=== PATIENT | male | born 1940 | race Caucasian/White ===

== ENCOUNTER 2019-09-13 15:01 | Inpatient (IN) | payer MEDICARE, BC ==
[~2019-09-13] VITALS: Ht 180.3 cm; Wt 99.9 kg
[~2019-09-13 15:01] MED LIST: ASPIRIN 81M81 MG/TA2; CLARITIN 1010 MG/TAB PO; EPA FISH OIL1 SGL PO; PROVENTIL0.09 MG/A1 IH; TYLENOL 325MG325 MG PO
[2020-02-22] VITALS (13 sets, daily range): BP systolic 105–174; BP diastolic 58–92; PULSE 59–83; TEMP 97.4–98.4
[2020-02-22] MEDS ORDERED: TYLENOL 500MG500 MG PO (01:34)
[2020-02-22] MEDS ORDERED: PROAIR HFA0.09 MG/AC IH (01:35)
[2020-02-22] MEDS ORDERED: 00186-0370-20 IH (01:35)
[2020-02-22] MEDS ORDERED: MOTRIN 200200 MG/TAB PO (01:36)
[2020-02-22] MEDS ORDERED: AMOXICILLIN 8751 TAB PO (01:37)
[2020-02-22] MEDS ORDERED: CENTRUM SILVER1 CTB PO (01:37)
[2020-02-22] MEDS ORDERED: ALEVE 220MG220 MG PO (01:38)
[2020-02-22] MEDS ORDERED: PRILOSEC 20MG20 MG PO (01:38)
[2020-02-22] MEDS ORDERED: SUDAFED 12 HOU120 MG PO (01:41)
--- NOTE | 2020-02-22 05:30 | NUR ---
ARRIVED PER W/C TO ROOM 329 FOR SURGERY THIS AM.
--- NOTE | 2020-02-22 06:29 | NUR ---
TO SURGERY PER BED.
--- NOTE | 2020-02-22 09:57 | NUR ---
First visit from the director medical. Audio Engineer talked with . No needs right now.
--- NOTE | 2020-02-22 12:10 | NUR ---
PT TO ROOM 329 PER BED WITH REPORT FROM [facility] PACU @[id number]. PT IS A/O X3 LUNGS CTA, BOWEL SOUNDS PRESENT. DRESSING TO RIGHT HIP CDI WITH OCLUSIVE TAPE BULKY DRESSING OVER INCISION. IV TO PUMP. SCDS BILATERALLY. PT TAKING PO INTAKE. ICE CREAM AND ICE WATER PROVIDED PER REQUEST. SPOUSE AT BEDSIDE.
--- NOTE | 2020-02-22 14:03 | NUR ---
Managed Care Analyst met with patient to discuss discharge planning. Patient lives near [place], [place] with his Delmis (ph#[phone]) and sees Dr. Baca for primary care. [facility]. Patient advised he occasionally uses a cane for ambulation and also has borrowed a front wheeled walker for recovery. Patient states he is normally independent with ADLS and plans to return home upon discharge. Patient states his DPOA-HC is his , [employer]. SW will continue to follow as needed.
--- NOTE | 2020-02-22 14:29 | NUR ---
DR CHEATHAM ROUNDED ON PATEINT EXPLAINED PAIN PROTOCOLS.
--- NOTE | 2020-02-23 03:57 | NUR ---
Patient has rested well throughout the night. Takes medication with no difficulties. PRN pain medication administered and states pain is tolerable. Patient up and ambulated to the joint desk and back with walker, gait belt, and 2 assist from staff for safety. IVF continued right wrist. Crowley catheter in place and drains clear, yellow urine. Tolerated ambulation well. Slow, steady gait noted. Bulky dressing noted to right hip. No drainage noted. TEDs and SCDs on. Will continue to monitor.
[2020-02-23 04:23] VITALS: BP 119/54; PULSE 57; TEMP 97
[2020-02-23 06:43] LABS: HEMATOCRIT 39.5 % (42.0-52.0); HEMOGLOBIN 13.5 g/dl (13.5-18.0)
--- NOTE | 2020-02-23 08:00 | NUR ---
PATIENT IS ORIENTED BUT DROWSY THIS AM. PATIENT DENIES NEED FOR PAIN MEDS THIS AM AND STATES HE STILL FEELS "WHOSY" FROM THE NARCOTICS HE TOOK LAST NIGHT. PATIENT RESTING UP IN BED. RTH POST OP DRESSING CHANGED TO AQUACEL AND ICE PACK APPLIED. TEDS & SCD'S TO BLE. POSITIVE PEDAL PULSES TO BLE. LYN TO DD AND WILL BE REMOVED AFTER AM PT. HEAD TO TOE ASSESSMENT WNL. AM MEDS GIVEN. BREAKFAST TRAY AT BEDSIDE. NO OTHER NEEDS. CALL LIGHT IN REACH.
[2020-02-23 08:21] VITALS: BP 129/72; PULSE 124; PULSE 62; TEMP 98.1
[2020-02-23 11:45] VITALS: BP 135/60; PULSE 106; TEMP 98.2
--- NOTE | 2020-02-23 15:01 | NUR ---
JOANNE collaborated with PT who advised the walker patient borrowed from a friend will not work. JOANNE met with patient who would like to order through [facility]. JOANNE contacted [facility] and was advised that they are unable to bill patient's insurance for walker on the day of discharge. JOANEN followed up with patient who would like order to be sent to [facility] as they are able to bill patient's insurance and deliver walker day of discharge. JOANNE contacted Karen at [facility] and faxed signed order for walker, H&P, progress notes, and PT notes. Karen advised they are able to deliver walker tomorrow. JOANNE will continue to follow.
[2020-02-23 15:48] VITALS: BP 141/64; PULSE 72; TEMP 99.6
[2020-02-23 19:09] VITALS: BP 152/65; PULSE 78; TEMP 97.7
--- NOTE | 2020-02-23 19:54 | NUR ---
Pt assessment completed and documented. Pt alert and oriented x4. Pt is resting in bed at this time watching televison. PRN pain medication given for pain to right hip. Ice pack to right hip. Aquacel dressing to right hip surgical site CDI. Pt denies any other needs at this time. Call light within reach.
[2020-02-23 23:09] VITALS: BP 139/89; PULSE 82; TEMP 98.1
[2020-02-24 03:53] VITALS: BP 125/71; PULSE 69; TEMP 98.4
[2020-02-24 06:18] LABS: HEMATOCRIT 39.1 % (42.0-52.0)
--- NOTE | 2020-02-24 07:07 | NUR ---
PT RESTING IN BED. PLAN ON DISCHARGE LATER TODAY.
[2020-02-24] MEDS ORDERED: ASPI325T6 PO (07:19)
[2020-02-24] MEDS ORDERED: CELEBREX 200MG200 MG PO (07:19)
[2020-02-24] MEDS ORDERED: ROXICODONE 55 MG/TAB PO (07:20)
[2020-02-24] MEDS ORDERED: SENOKOT S 50 MG1 TAB PO (07:20)
[2020-02-24] MEDS ORDERED: ULTRAM 50MG TAB50 MG PO (07:20)
[2020-02-24 07:59] VITALS: BP 125/59; PULSE 87; TEMP 98.3
--- NOTE | 2020-02-24 09:14 | NUR ---
PT INDEPENDENT IN ROOM. PAIN CONTROLLED WITH PO MEDS. DRESSING TO RIGHT HIP CDI. PLAN ON DISCHARGE AFTER WORKING WITH OT FOR SHOWER AROUND 1200.
--- NOTE | 2020-02-24 10:24 | NUR ---
Head Setter spoke with patient's , [employer] about picking up front wheeled walker from [facility]. [employer] will picker box operator walker at 1145 then picker box operator patient today around 1200. SW contacted [facility] to notify them about time of picker box operator. No additional needs at this time.
[2020-02-24 12:00] VITALS: BP 123/56; PULSE 87; TEMP 97.2
--- NOTE | 2020-02-24 12:53 | NUR ---
DISCHARGE INSTRUCTIONS REVIEWED WITH PT AND . QUESTIONS ANSWERED. PT TAKEN OUT IN WHEEL CHAIR.
== END 2020-02-24 12:55 | disposition home or self-care (01) | DRG 470 ==
LOC: JCC 11-16 07:30
PROVIDERS: ADMIT Orthopaedic Surgery
PROC: 0SR90JA Replacement of Right Hip Joint with Synthetic Substitute, Uncemented, Open Approach (ICD-10-PCS; principal; 2020-02-22 07:30)
DX: M16.11 Unilateral primary osteoarthritis, right hip (principal); J44.9 Chronic obstructive pulmonary disease, unspecified; K21.9 Gastro-esophageal reflux disease without esophagitis; G47.30 Sleep apnea, unspecified; J30.2 Other seasonal allergic rhinitis; Z79.1 Long term (current) use of non-steroidal anti-inflammatories (NSAID); Z85.828 Personal history of other malignant neoplasm of skin; Z87.891 Personal history of nicotine dependence
CPT/HCPCS: A4314; A9284; C1713; C1776; J0360; J0690; J2250; J2270; J2704; J3010; J7030; J7120

== ENCOUNTER → 2020-02-10 | Outpatient (CLI) | payer MEDICARE, BC | LOC: COL.LAB 10:29 | DX: Z01.812 Encounter for preprocedural laboratory examination (principal); Z01.83 Encounter for blood typing; M16.11 Unilateral primary osteoarthritis, right hip ==

== ENCOUNTER 2021-10-30 12:46 | Day surgery (SDC) | payer MEDICARE, BC ==
[~2021-10-30 12:46] MED LIST changes: +00186-0370-20 IH; +ALEVE 220MG220 MG PO; +AMOXICILLIN 8751 TAB PO; +ASPI325T6 PO; +CELEBREX 200MG200 MG PO; +CENTRUM SILVER1 CTB PO; +MOTRIN 200200 MG/TAB PO; +PRILOSEC 20MG20 MG PO; +PROAIR HFA0.09 MG/AC IH; +ROXICODONE 55 MG/TAB PO; +SENOKOT S 50 MG1 TAB PO; +SUDAFED 12 HOU120 MG PO; +TYLENOL 500MG500 MG PO; +ULTRAM 50MG TAB50 MG PO
[2021-10-30] MEDS ORDERED: MOTRIN 200200 MG/TAB PO (14:43)
[2021-10-30] MEDS ORDERED: NORCO 325 MG-51 TAB PO (16:19)
[2021-10-30 17:05] VITALS: BP 168/80; PULSE 57; TEMP 97.5
--- NOTE | 2021-10-30 17:05 | NUR ---
PT TO BAY 7 PER CART FROM PACU. VS OBTAINED. PT DENIES ANY NEEDS AT THIS TIME. WILL CONTINUE TO MONITOR. PT TOLERATING PEPSI AND PUDDING.
[2021-10-30 17:20] VITALS: BP 164/74; PULSE 56
--- NOTE | 2021-10-30 17:20 | NUR ---
PT CONTINUES TO TOLERATE PEPSI AND PUDDING. DENIES ANY NEEDS AT THIS TIME. WILL CONTINUE TO MONITOR PT.
[2021-10-30 17:35] VITALS: BP 167/79; PULSE 59
--- NOTE | 2021-10-30 17:35 | NUR ---
PT UP TO RESTROOM. PT STATED HE VOIDED A SMALL AMOUNT. DENIES ANY NEEDS AT THIS TIME. WILL CONTINUE TO MONITOR.
[2021-10-30 17:40] VITALS: BP 158/69; PULSE 58
--- NOTE | 2021-10-30 17:40 | NUR ---
PT STATES HE IS READY FOR DISCHARGE.
--- NOTE | 2021-10-30 17:45 | NUR ---
IV DC'D. PT TOLERATED WELL.
[2021-10-30 17:47] VITALS: BP 144/75; PULSE 58; TEMP 98.2
--- NOTE | 2021-10-30 17:55 | NUR ---
PT OFF UNIT PER WHEELCHAIR. PT DISCHARGE TO HOME WITH PER PERSONAL VEHICLE.
== END 2021-10-30 17:55 | disposition home or self-care (01) ==
LOC: SDCO 12:46
DX: K40.90 Unilateral inguinal hernia, without obstruction or gangrene, not specified as recurrent (principal); Z87.891 Personal history of nicotine dependence; I10 Essential (primary) hypertension; Z80.3 Family history of malignant neoplasm of breast; Z80.42 Family history of malignant neoplasm of prostate
CPT/HCPCS: C1781; J0690; J1100; J2405; J2704; J3010; J7120

== ENCOUNTER 2022-02-15 08:25 | Day surgery (SDC) | payer MEDICARE, BC ==
[~2022-02-15] VITALS: Ht 182.9 cm; Wt 97.1 kg
[~2022-02-15 08:25] MED LIST changes: +NORCO 325 MG-51 TAB PO
[2022-02-15 10:02] VITALS: BP 147/83; PULSE 60; TEMP 97.6
[2022-02-15] MEDS ORDERED: FLONASEALLERGY NS (10:07)
[2022-02-15 10:45] VITALS: BP 167/81; PULSE 70; TEMP 98
[2022-02-15 11:00] VITALS: BP 146/80; PULSE 66
[2022-02-15 11:15] VITALS: BP 143/67; PULSE 67
[2022-02-15 11:58] LABS: BASO % 0.6 % (0.0-2.0); EOS # 0.2 K/mm3 (0.0-0.7); GRAN # 4.7 K/mm3 (1.4-6.5); GRAN % 69.6 % (42.2-75.2); HEMATOCRIT 42.3 % (42.0-52.0); HEMOGLOBIN 12.9 g/dl (13.5-18.0); LYMPH # 1.4 K/mm3 (1.2-3.4); LYMPH % 20.5 % (20.0-51.0); MEAN CELL VOLUME 82 fl (80.0-100.0); MEAN CORPUSCULAR HEMOGLOBIN 25 pg (27-31); MEAN CORPUSCULAR HGB CONC 31 g/dl (33.0-37.0); MEAN PLATELET VOLUME 10.3 fl (7.4-10.4); MONO # 0.4 K/mm3 (0.1-0.6); MONO % 5.9 % (1.7-9.3); PLATELET COUNT 282 K/mm3 (130-400); RED BLOOD COUNT 5.14 M/mm3 (4.20-5.60); REDCELL DISTRIBUTION WIDTH-CV 18.4 % (11.5-14.5)
== END 2022-02-15 11:57 ==
LOC: SDCO 08:25
PROVIDERS: Internal Medicine Gastroenterology
DX: K57.30 Diverticulosis of large intestine without perforation or abscess without bleeding (principal); K55.20 Angiodysplasia of colon without hemorrhage; K92.1 Melena; D50.0 Iron deficiency anemia secondary to blood loss (chronic); Z87.891 Personal history of nicotine dependence
CPT/HCPCS: J0360; J2704; J7030